=== PATIENT | female | born 1935 | race Caucasian/White ===

== ENCOUNTER → 2016-03-18 | Outpatient (CLI) | payer OTHER ==
--- NOTE | 2016-03-18 19:19 | US ---
Left Lower Extremity Duplex Venous Doppler Interventional Consult Relevant History: The patient is an 80-year-old female presenting with a long-term history of extens rena left lower extremity [id number] ulceration. Currently, the ulcer is the entire medial portio n of the calf, and deeply in the lateral distal portion of the ankle. [facility] have been severely painful. These ulcers have not healed for years. The patient is refe rred for evaluation of venous hypertension as a source of the ulceration. Conservatively, the patien t has been going through dressing changes with the [facility], which also applies supportive stocki ng and tight compression. She does not have any history of arterial insufficiency. She has 3+ pitti ng edema on the physical exam, and extensively swollen left leg below the knee, and the bandages were not particularly removed today because of the severe pain it would induce the patient. Technique: A limited upright duplex venous Doppler was performed of the superficial system, followed by a supine interrogation of the deep system. Discussion took place with the patient afterwards. Findings: The great saphenous vein measures 6 mm at the knee, 6 mm at the mid thigh, 9 mm at the nallely in, 12 mm at the SFJ. It demonstrates greater than 5 seconds reflux. The ALT measures 5 mm at the p roximal 5 cm segment, after which it exits the sheath and contributes to large externally visible rop ey varicose veins. The ALT refluxes 7 seconds. There is no deep system reflux in the common femoral area. There are incidental lymph nodes. Ugvbg-djb-[id number] interrogation again was not performed today because the dressings are not removed belo w the knee. Impressions 1. Moderate reflux in the great saphenous system at 5 seconds. 2. Significant reflux at the ALT at 7 seconds. 3. Large externally visible ropey varicose veins in the ALT distribution. Treatment Plan 1. Laser ablation of the great saphenous system. 2. Sclerotherapy of the proximal ALT after laser ablation of the great saphenous system. 3. 10 to 20 stab phlebectomy of the large ropey varicose veins. After the above treatment, continued application of compression stocking and wound change will need t o take place through Wound Care. I would give this patient at least a month or two before the ulcers show significant healing. At that point, the patient is to return for repeat ultrasound below the k nee. I anticipate some perforators that are [id number] that would contribute to additional ulcer ation or lack of complete healing. These will need to be found and treated at that time. The above are discussed in detail with the patient, who expressed understanding and agreement. Total [id number]-mg-[id number] consultation was half an hour. Crosscutting Measure: Patient's current list of medications including all known prescriptions, over- the-counters, herbals, and vitamin/mineral/dietary supplements are reviewed. Medications' name, dosa ge, frequency, and route of administration are confirmed. Patient is a nonsmoker.
== END ==
LOC: FIMAGING 07:51
PROVIDERS: ATTEND Radiology Diagnostic Radiology
DX: I87.2 Venous insufficiency (chronic) (peripheral) (principal); L97.229 Non-pressure chronic ulcer of left calf with unspecified severity

== ENCOUNTER 2016-05-07 08:02 | Day surgery (SDC) | payer OTHER ==
[2016-05-07] MEDS ORDERED: SODIUM TETRADECYL SULFATE 60 MG/2 ML VIAL IV ONE (08:22)
[2016-05-07] MEDS ORDERED: LIDO/EPI 1% **for epidural** 30 ML SDV ONE (08:22)
[2016-05-07 09:09] LABS: HEMATOCRIT 32.8 % (38.0-47.0); HEMOGLOBIN 9.8 g/dL (12.6-16.3)
[2016-05-07 09:21] LABS: ANION GAP 9 mEq/L (8-16); CARBON DIOXIDE 23 mEq/l (22-31); CHLORIDE 105 mEq/L (97-110); CREATININE 0.6 mg/dL (0.6-1.0); GLOMERULAR FILTRATION RATE > 60; GLUCOSE 93 mg/dL (70-100); POTASSIUM 4.4 mEq/L (3.5-5.2); SODIUM 137 mEq/L (134-144)
[2016-05-07 09:23] LABS: INR 1.08 (0.83-1.16); PROTIME(PATIENT) 13.9 SEC (12.0-15.0)
[2016-05-07 09:24] LABS: APTT 39.3 SEC (23.0-38.0)
[2016-05-07] MEDS ORDERED: FLUMAZENIL 0.5 MG/5 ML MDV IVP ONE (09:38)
[2016-05-07] MEDS ORDERED: NALOXONE HCL 0.4 MG/ML INJ ONE (09:38)
[2016-05-07] MEDS ORDERED: fentaNYL 100 MCG/2 ML INJ ONE ×2 (09:39→10:48)
[2016-05-07] MEDS ORDERED: CEFAZOLIN 2 GM/DEXTROSE/100 ML BAG IV ONE (09:39)
[2016-05-07] MEDS ORDERED: MIDAZOLAM 2 MG/2 ML VIAL ONE (09:39)
== END 2016-05-07 14:35 | disposition home or self-care (01) ==
LOC: FIMAGING 08:02
PROVIDERS: ATTEND Radiology Diagnostic Radiology
PROC: 065Q3ZZ Destruction of Left Saphenous Vein, Percutaneous Approach (ICD-10-PCS; principal; 2016-05-07 11:30)
PROC: 3E033TZ Introduction of Destructive Agent into Peripheral Vein, Percutaneous Approach (ICD-10-PCS; principal; 2016-05-07 11:30)
PROC: 06DY0ZZ Extraction of Lower Vein, Open Approach (ICD-10-PCS; principal; 2016-05-07 11:30)
DX: I83.022 Varicose veins of left lower extremity with ulcer of calf (principal); L03.116 Cellulitis of left lower limb
CPT/HCPCS: J0690; J2250; J2310; J3010

== ENCOUNTER 2016-10-19 15:30 | Inpatient (IN) | payer OTHER ==
--- NOTE | 2016-10-19 15:27 | EDPHY ---
H & P Constitutional: Initial Vital Signs Temperature (C) 37.5 C 10/19/16 15:30 Heart Rate 120 H 10/19/16 15:30 Respiratory Rate 20 10/19/16 15:30 Blood Pressure 156/57 H 10/19/16 15:30 O2 Sat (%) 94 10/19/16 15:30 O2 Delivery Mode Room Air Allergies/Adverse Reactions: Sulfa (Sulfonamide Antibiotics) Allergy (Unknown, Verified 11/27/12 21:07) Home Medications: Medication Instructions Recorded metFORMIN HCL [Glucophage 500 mg 1,000 mg PO BIDMEAL 11/28/12 (*)] Naproxen Sodium [Aleve 220 MG (*)] 220 mg PO BIDMEAL PRN 10/16/15 Aspirin 81 mg PO DAILY 02/13/16 Herbal Drugs 02/13/16 Insulin Glargine [Lantus 100 38 units SC HS 02/13/16 UNITS/ML (*)] traMADol 50 mg PO PRN PRN 02/13/16 Vitamin C 500 mg (*) 1,000 mg PO DAILY 05/02/16 Vitamin D3 10,000 units PO DAILY 05/02/16 Medical Decision Making - Diagnostics Imaging Results: Imaging Impressions Chest X-Ray 10/19/16 15:36 Impression: 1. No pneumonia. 2. Cardiomegaly without failure. Imaging: I viewed and interpreted images myself ED Course/Re-evaluation: CHIEF COMPLAINT: Malaise, concern for sepsis. HISTORY OF PRESENT ILLNESS: The patient is an 80 y/o female, with a history of diabetes, arriving via EMS complaining of malaise onset this morning after a routine blood draw. She has chronic diabetic ulcers to both lower legs that are followed by her PCP. Once returning home, she developed malaise, nausea, chills , and a reported fever of 102F. She denies any specific pain, cough, urinary symptoms, or other infectious symptoms. EMS notes she was tachycardic and pale en route. She denies other complaints. REVIEW OF SYSTEMS: A 10 point review of systems was performed and is negative with the exception of the elements mentioned in the history of present illness. PHYSICAL EXAM: HR, BP, O2 Sat, RR. Temp noted General Appearance: Alert, well hydrated, appropriate, and pale. Head: Atraumatic without scalp tenderness or obvious injury Eyes: Pupils equal, round, reactive to light and accommodation, EOMI, no trauma , no injection. Nose: Atraumatic, no rhinorrhea, clear. Throat: Mucus membranes moist. Neck: Supple, nontender, no lymphadenopathy. Respiratory: No retractions, no distress, no wheezes, and no accessory muscle use. Lungs are clear to auscultation bilaterally. Cardiovascular: Tachycardic regular rate and rhythm, no murmurs, rubs, or gallops. Good capillary refill all extremities. Gastrointestinal: Abdomen is soft, nontender, non-distended, no masses, no rebound, no guarding, no peritoneal signs. Musculoskeletal: Normal active ROM of all extremities. Chronic cellulitic changes to both lower legs with large weeping wound and surrounding erythema on left lower leg. Wounds are fetid. Neurological: Alert, appropriate, and interactive. Nonfocal neuro exam. Skin: Pale. No rashes, good turgor, no nodules on palpation. Past medical history: Diabetes type II, diabetic ulcers Past surgical history: Bilateral knee replacements Family history: noncontributory Social history: Single. Retired. Lives in [place]. PCP: Dr. Christensen DIAGNOSTICS/PROCEDURES/CRITICAL CARE TIME: Chest x-ray: No infiltrate, cardiomegaly. DIFFERENTIAL DIAGNOSIS: The differential diagnosis for the patient's fever included but was not limited to diabetic ulcers, pneumonia, urinary tract infection, viral syndrome, meningitis, and sepsis. MEDICAL DECISION MAKING: This is a chronically-ill appearing 80 y/o female with a history of diabetes and chronic leg ulcers who presents with a few-hour history of malaise and fever. She is pale and tachycardic on initial exam with fetid bandages on both lower legs. She is not on antibiotics for these ulcers and has bilateral knee replacements directly above her ulcerations. She meets initial sepsis screening criteria due to her vitals and likely source of infection. Plan for IV, labs including lactate and cultures, UA, and chest x-ray. Patient has elevated WBC and is anemic with a Hct of 23. Her Hct has been progressively decreasing since 2016 for unclear reasons. Her lactate is normal. She does not meet criteria for severe sepsis. She will be typed&crossed for 2 units PRBCs and given 4.5gm IV Zosyn for suspected pseudomonas leg infections. Reassessed and discussed plan with the patient. She agrees with plan for admission. Spoke with hospitalist service. Dr. Hall accepts admission. Consulted with Dr. Christensen, patient's PCP, to update him on patient's condition. He has worked up the patient's anemia and determined it is an anemia of chronic disease and treats her with occasional transfusions as needed. He also recommended keeping patient's bandages in place. - Data Points Laboratory Results: Laboratory Results 10/19/16 15:48 10/19/16 15:48 10/19/16 10/19/16 10/19/16 16:35 15:48 15:48 WBC RBC Hgb Hct MCV MCH MCHC RDW Plt Count MPV Neut % (Auto) Lymph % (Auto) [place] % (Auto) Eos % (Auto) Baso % (Auto) Nucleat RBC Rel Count Absolute Neuts (auto) Absolute Lymphs (auto) Absolute Monos (auto) Absolute Eos (auto) Absolute Basos (auto) Absolute Nucleated RBC Immature Gran % Immature Gran # Platelet Estimate Polychromasia Hypochromasia Microcytic Cells Schistocytes Smear Review By PT 14.0 SEC SEC (12.0-15.0) INR 1.09 (0.83-1.16) APTT 29.2 SEC SEC (23.0-38.0) VBG Lactic Acid Sodium 129 mEq/L L mEq/L (134-144) Potassium 4.6 mEq/L mEq/L (3.5-5.2) Chloride 98 mEq/L mEq/L (97-110) Carbon Dioxide 21 mEq/l L mEq/l (22-31) Anion Gap 10 mEq/L mEq/L (8-16) BUN 15 mg/dL mg/dL (7-23) Creatinine 0.9 mg/dL mg/dL (0.6-1.0) Estimated GFR > 60 Glucose 153 mg/dL H mg/dL (70-100) Calcium 8.4 mg/dL L mg/dL (8.5-10.4) Total Bilirubin 0.7 mg/dL mg/dL (0.1-1.4) Patient ABO/Rh Pending Antibody Screen Pending Crossmatch IS Only See Detail 10/19/16 10/19/16 15:48 15:48 WBC 18.86 10^3/uL H 10^3/uL (3.80-9.50) RBC 3.23 10^6/uL L 10^6/uL (4.18-5.33) Hgb 6.9 g/dL L g/dL (12.6-16.3) Hct 23.1 % L % (38.0-47.0) MCV 71.5 fL L fL (81.5-99.8) MCH 21.4 pg L pg (27.9-34.1) MCHC 29.9 g/dL L g/dL (32.4-36.7) RDW 19.1 % H % (11.5-15.2) Plt Count 339 10^3/uL 10^3/uL (150-400) MPV 8.8 fL fL (8.7-11.7) Neut % (Auto) 94.1 % H % (39.3-74.2) Lymph % (Auto) 2.4 % L % (15.0-45.0) [place] % (Auto) 2.8 % L % (4.5-13.0) Eos % (Auto) 0.0 % L % (0.6-7.6) Baso % (Auto) 0.1 % L % (0.3-1.7) Nucleat RBC Rel Count 0.0 % % (0.0-0.2) Absolute Neuts (auto) 17.73 10^3/uL H 10^3/uL (1.70-6.50) Absolute Lymphs (auto) 0.46 10^3/uL L 10^3/uL (1.00-3.00) Absolute Monos (auto) 0.53 10^3/uL 10^3/uL (0.30-0.80) Absolute Eos (auto) 0.00 10^3/uL L 10^3/uL (0.03-0.40) Absolute Basos (auto) 0.02 10^3/uL 10^3/uL (0.02-0.10) Absolute Nucleated RBC 0.00 10^3/uL 10^3/uL (0-0.01) Immature Gran % 0.6 % % (0.0-1.1) Immature Gran # 0.12 10^3/uL H 10^3/uL (0.00-0.10) Platelet Estimate ADEQUATE (ADEQ) Polychromasia 1+ H Hypochromasia 2+ H Microcytic Cells 2+ H Schistocytes 1+ H Smear Review By Pending PT INR APTT VBG Lactic Acid 1.5 mmol/L mmol/L (0.7-2.1) Sodium Potassium Chloride Carbon Dioxide Anion Gap BUN Creatinine Estimated GFR Glucose Calcium Total Bilirubin Patient ABO/Rh Antibody Screen Crossmatch IS Only Departure - Departure Disposition: [facility] Inpatient Acute Clinical Impression: Fever Qualifiers: Fever type: due to other condition Qualified Code(s): R50.81 - Fever presenting with conditions classified elsewhere Skin ulcer of lower leg Qualifiers: Laterality: unspecified laterality Non-pressure ulcer stage: unspecified non- pressure ulcer stage Qualified Code(s): L97.909 - Non-pressure chronic ulcer of unspecified part of unspecified lower leg with unspecified severity Leukocytosis Qualifiers: Leukocytosis type: other Qualified Code(s): D72.828 - Other elevated white blood cell count Condition: Fair Report Scribed for: Gerard Tamayo Report Scribed by: Gudelia Cobian Date of Report: 10/19/16 Time of Report: 15:42
[2016-10-19 16:06] LABS: % IMMATURE GRANULYOCYTES 0.6 % (0.0-1.1); ABSOLUTE IMMATURE GRANULOCYTES 0.12 10^3/uL (0.00-0.10); ADD DIFF? NO; ADD MORPH? YES; ADD SCAN? NO; ATYPICAL LYMPHOCYTE FLAG 0 (0-99); FRAGMENT RBC FLAG 20 (0-99); HEMATOCRIT 23.1 % (38.0-47.0); LEFT SHIFT FLG 0 (0-99); LIPEMIA HEMOLYSIS FLAG 70 (0-99); MEAN CELL HEMOGLOBIN 21.4 pg (27.9-34.1); MEAN CELL HEMOGLOBIN CONCENTR. 29.9 g/dL (32.4-36.7); MEAN CELL VOLUME 71.5 fL (81.5-99.8); MEAN PLATELET VOLUME 8.8 fL (8.7-11.7); PLATELET CLUMPS FLAG 0 (0-99); PLATELET COUNT 339 10^3/uL (150-400); RED BLOOD CELL COUNT 3.23 10^6/uL (4.18-5.33); RED CELL DISTRIBUTION WIDTH 19.1 % (11.5-15.2)
[2016-10-19 16:08] LABS: APTT 29.2 SEC (23.0-38.0); INR 1.09 (0.83-1.16)
[2016-10-19 16:09] LABS: HEMOGLOBIN 6.9 g/dL (12.6-16.3)
[2016-10-19 16:16] LABS: ANION GAP 10 mEq/L (8-16); BILIRUBIN,TOTAL 0.7 mg/dL (0.1-1.4); CALCIUM 8.4 mg/dL (8.5-10.4); CARBON DIOXIDE 21 mEq/l (22-31); CHLORIDE 98 mEq/L (97-110); CREATININE 0.9 mg/dL (0.6-1.0); GLOMERULAR FILTRATION RATE > 60; GLUCOSE 153 mg/dL (70-100); POTASSIUM 4.6 mEq/L (3.5-5.2); SODIUM 129 mEq/L (134-144)
[2016-10-19] MEDS ORDERED: ERTAPENEM 1 GM in NS 100 ML IV ONE (16:38)
[2016-10-19 16:50] LABS: MICROCYTES 2+
[2016-10-19 16:51] LABS: HYPOCHROMIA 2+; PLATELET ESTIMATE ADEQUATE (ADEQ); POLYCHROMASIA 1+; SCHISTOCYTES 1+
[2016-10-19] MEDS ORDERED: PIPERACILLIN/TAZO 4.5 GM/DEX 100 ML IV ONE (16:57)
[2016-10-19] MEDS ORDERED: traMADol 50 MG TAB PO PRN (17:27)
[2016-10-19] MEDS ORDERED: HYDROCODONE/APAP 5/325 TAB PO PRN (17:30)
[2016-10-19] MEDS ORDERED: ONDANSETRON DISINTEGRATING 4 MG TAB PO PRN (17:30)
[2016-10-19] MEDS ORDERED: NS 1,000 ML IV SCH (17:30)
[2016-10-19] MEDS ORDERED: ONDANSETRON 4 MG/2 ML VIAL IVP PRN (17:30)
[2016-10-19] MEDS ORDERED: ACETAMINOPHEN 325 MG TAB PO PRN (17:30)
--- NOTE | 2016-10-19 17:41 | CPEKG ---
Heart Rate: 109 RR Interval: 550 P-R Interval: 164 QRSD Interval: 74 QT Interval: 320 QTC Interval: 431 P Clawson: 52 QRS Clawson: 49 T Wave Clawson: 46 EKG Severity - OTHERWISE NORMAL ECG - EKG Impression: SINUS TACHYCARDIA Electronically Signed By: Kelvin Petit 22-Oct-2016 15:33:45
[2016-10-19 17:53] LABS: COLOR YELLOW; LEUKOCYTE ESTERASE,URINE TRACE (NEGATIVE); NITRITE,URINE NEGATIVE (NEGATIVE)
[2016-10-19 17:57] LABS: MUCUS TRACE /lpf (NONE-1+)
[2016-10-19] MEDS ORDERED: PIPERACILLIN/TAZO 3.375 GM/DEX 50 ML IV SCH (18:00)
--- NOTE | 2016-10-19 18:35 | GHP ---
[f rep st] HISTORY AND PHYSICAL DATE OF ADMISSION: 10/19/2016 CHIEF COMPLAINT: Fever and malaise. HISTORY OF PRESENT ILLNESS: This is an 80-year-old female with a history of chronic left lower extr emity ulceration and venous insufficiency. She has been struggling with this for over a year. She has been seeing Wound Care and had a wound VAC on that until just several days ago. In discussing t he case with Dr. Hay, it seems that she was late to her appointment and they were actually conside ring letting her go from the wound clinic for missed and late appointments. She states that at that time that she was aware of an anemia that needed to be worked up, that she was going to undergo col onoscopy and blood transfusion per Dr. Christensen. She, over the last several days, has been feeling weaker. She states that she does not drink a lot of water because it is difficult for her to go to the bathroom. She has had some vomiting but no bl ood. She has not been eating. She also then had a fever to 102 yesterday. She feels that she has more pain in her leg; although, she says that the erythema and drainage is about the same. No dysur ia. No diarrhea. The patient denies any melena. She does take 3 Aleve per day which she stopped a few days ago. She did have a colonoscopy 2 years ago, which she said there were no polyps. She has had 2 other colon oscopies prior, one of which had polyps, during the initial one. REVIEW OF SYSTEMS: A 10-point review of systems was obtained and, other than the History of Present Illness, was negative. PAST MEDICAL HISTORY: 1. Type 2 diabetes. 2. Venous insufficiency. 3. Chronic left lower extremity wound as above. 4. Previous colonization with Pseudomonas. 5. History of congenital heart murmur. SOCIAL HISTORY: No smoking or tobacco. She does live alone. She does have several close friends. 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 FAMILY HISTORY: Father with diabetes. Mother with Alzheimer's. PHYSICAL EXAMINATION: VITAL SIGNS: Afebrile. Blood pressure is 156/57. Heart rate is 120s, come down in the low one-teens. GENERAL: The patient is slightly ill-appearing in no apparent distress. HEENT: Nonicteric sclerae. Extraocular movements are intact. Slightly dry mucous membranes. NE CK: Supple. No thyromegaly. LUNGS: Good effort. Clear to auscultation bilaterally. CARDIOVASCU LAR: Regular rate and rhythm with a 3/6 systolic murmur heard best at the left lower sternal border . ABDOMEN: Positive bowel sounds. Soft, nontender, nondistended. No hepatosplenomegaly. EXTREMI TIES: Chronic venous stasis changes of both legs. The left lower extremity has a significant ulcer ation that is circumferential around her leg and basically encompasses her whole lower leg. There i s some malodor and purulence; although, the patient says this is chronic. NEUROLOGIC: Alert and or iented x3. Moving all 4 extremities equally. PSYCHIATRIC: Normal affect. LABORATORY DATA: White blood cell count 18, hemoglobin 6.9, MCV 71, which compared to last year, he r hemoglobin was 11, MCV was 80. Her reticulocyte count actually, on labs drawn this morning, was s lightly high at 3.39. Sodium was 129. Her last sodium shows a 137 in the system. Blood drawn by h er PCP does show an iron of 15, an iron saturation of 4, and a ferritin of 14. ASSESSMENT: This is an 80-year-old female, with left lower extremity chronic ulceration, venous ins ufficiency with probable cellulitis and newer iron-deficiency anemia. PLAN: 1. Left lower extremity cellulitis. The patient does have an elevated white blood cell count and f ever. I am not sure if the appearance is much different; although, I have asked Dr. Hay to come s ee the patient tomorrow and comment on this as she has been following the patient and saw the leg ju a few days ago. Since she has been colonized with Pseudomonas, we will treat her with Zosyn and then get Infectious Disease to see her in the morning. 2. Microcytic, iron-deficiency anemia. Hemoglobin has dropped fairly significantly in the last wee k. She is also volume depleted. I suspect that with hydration, her hemoglobin will drop even furth er. We will give her 2 units of packed red blood cells as ordered by the emergency department. We will also give IV iron. I talked and discussed the case with Gastroenterology who will do an upper EGD in the morning. Could have ulceration or gastritis due to her Aleve. She did have a normal col onoscopy 2 years ago and probably would not start with that. 3. Hyponatremia. This is probably related to volume depletion and low solute that she has been dri nking, trying to drink more water but not eating very much. We will give gentle hydration of normal saline and monitor this. We will also check urine electrolytes. 4. Type 2 diabetes. We will continue metformin. I am going to hold her Lantus because of being n. p.o. and not eating very much. 5. Code status. The patient is a DNR. /[id number]/MODL
[2016-10-19] MEDS: metFORMIN HCL 500 MG TAB PO SCH (18:37)
[2016-10-19] MEDS: PIPERACILLIN/TAZO 4.5 GM/DEX 100 ML IV SCH (18:37)
[2016-10-19] MEDS: SODIUM FERRIC GLUCONAT/SUCROSE 125 MG in NS 100 ML IV SCH (19:43)
[2016-10-19] MEDS: PANTOPRAZOLE SODIUM 40 MG in NS 100 ML IV SCH (21:05)
[2016-10-19] MEDS: OXYCODONE/APAP 5/325 TAB PO PRN (22:17)
[2016-10-20] MEDS: PIPERACILLIN/TAZO 4.5 GM/DEX 100 ML IV SCH ×2 (03:33→06:21)
[2016-10-20 04:53] LABS: % IMMATURE GRANULYOCYTES 0.5 % (0.0-1.1); ABSOLUTE IMMATURE GRANULOCYTES 0.07 10^3/uL (0.00-0.10); ADD DIFF? NO; ADD MORPH? NO; ADD SCAN? NO; ATYPICAL LYMPHOCYTE FLAG 0 (0-99); FRAGMENT RBC FLAG 20 (0-99); HEMATOCRIT 24.1 % (38.0-47.0); HEMOGLOBIN 7.5 g/dL (12.6-16.3); LEFT SHIFT FLG 0 (0-99); LIPEMIA HEMOLYSIS FLAG 80 (0-99); MEAN CELL HEMOGLOBIN 22.6 pg (27.9-34.1); MEAN CELL HEMOGLOBIN CONCENTR. 31.1 g/dL (32.4-36.7); MEAN CELL VOLUME 72.6 fL (81.5-99.8); MEAN PLATELET VOLUME 8.5 fL (8.7-11.7); PLATELET CLUMPS FLAG 20 (0-99); PLATELET COUNT 247 10^3/uL (150-400); RED BLOOD CELL COUNT 3.32 10^6/uL (4.18-5.33); RED CELL DISTRIBUTION WIDTH 19.3 % (11.5-15.2)
[2016-10-20 05:02] LABS: INR 1.22 (0.83-1.16); PROTIME(PATIENT) 15.4 SEC (12.0-15.0)
[2016-10-20 05:03] LABS: APTT 42.3 SEC (23.0-38.0)
[2016-10-20 05:16] LABS: ALANINE AMINOTRANSFERASE 24 IU/L (9-52); ALBUMIN 2.4 g/dL (3.5-5.0); ALKALINE PHOSPHATASE 42 IU/L (38-126); ANION GAP 10 mEq/L (8-16); ASPARTATE AMINOTRANSFERASE 21 IU/L (14-46); BILIRUBIN,TOTAL 2.2 mg/dL (0.1-1.4); CALCIUM 7.8 mg/dL (8.5-10.4); CARBON DIOXIDE 22 mEq/l (22-31); CHLORIDE 100 mEq/L (97-110); CREATININE 1.3 mg/dL (0.6-1.0); GLOMERULAR FILTRATION RATE 39; GLUCOSE 98 mg/dL (70-100); POTASSIUM 4.4 mEq/L (3.5-5.2); SODIUM 132 mEq/L (134-144); TOTAL PROTEIN 4.7 g/dL (6.3-8.2)
[2016-10-20 05:23] LABS: BILIRUBIN-CONJUGATED 0.2 mg/dL (0.0-0.5)
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
[2016-10-20] MEDS ORDERED: PROPOFOL 200 MG/20 ML VIAL ONE (09:21)
[2016-10-20] MEDS ORDERED: ONDANSETRON 4 MG/2 ML VIAL ONE (09:22)
--- NOTE | 2016-10-20 09:46 | SOAPPROG ---
SOAP Progress Note Assessment/Plan: Assessment: Plan: 10/20/16 09:44 GI note See dictated consult and EGD report. S/p EGD with no site of bleeding noted. Biopsies taken to r/o celiac sprue. Meds : propofol. EBL: Minimal Recommend to proceed with colonoscopy tomorrow. Objective: Vital Signs Temp Pulse Resp BP Pulse Ox 34.7 C L 76 16 110/51 L 97 10/20/16 08:50 10/20/16 09:19 10/20/16 09:19 10/20/16 09:19 10/20/16 09:19 Laboratory Results 10/20/16 04:45 10/20/16 04:45 10/19/16 10/20/16 10/21/16 05:59 05:59 05:59 Intake Total 1176 Balance 1176 PT 15.4 SEC (12.0-15.0) H 10/20/16 04:45 INR 1.22 (0.83-1.16) H 10/20/16 04:45 ICD10 Worksheet Patient Problems: Problems Problem Status Onset Venous insufficiency (chronic) (peripheral) Acute Skin ulcer of lower leg Acute Fever Acute Leukocytosis Acute
[2016-10-20] MEDS ORDERED: PROMETHAZINE HCL 25 MG/ML INJ IVP PRN (09:48)
[2016-10-20] MEDS ORDERED: LR 500 ML IV PRN (09:48)
[2016-10-20] MEDS ORDERED: fentaNYL 100 MCG/2 ML INJ IVP PRN (09:48)
[2016-10-20] MEDS ORDERED: NALOXONE HCL 0.4 MG/ML INJ IVP PRN (09:48)
--- NOTE | 2016-10-20 09:49 | POSTANESTH ---
Post Anesthetic Evaluation Cardiovascular Status: Normal, Stable Respiratory Status: Normal, Stable Level of Consciousness/Mental Status: Can Participate in Eval Pain Control: Adequate, Prn Tx Ordered Nausea/Vomiting Control: Adequate, Prn Tx Ordered Complications Possibly Related to Anesthesia: None Noted
--- NOTE | 2016-10-20 10:07 | GCON ---
[f rep st] CONSULTATION DATE OF CONSULTATION: 10/20/2016 CONSULTING PHYSICIAN: Freya Hall MD. REASON FOR CONSULTATION: Iron deficiency anemia. CHIEF COMPLAINT: Weakness. HISTORY OF PRESENT ILLNESS: The patient is an 80-year-old female with a history of diabetes mellitus, chronic left lower extremity ulceration, who presents to [facility] with complaints of fatigue/weakness. The patient has significant fatigue, weakness for multiple months, but states over the last 2 weeks her symptoms are much worse. She has had significant problems performing her activity of daily living. She did have one episode of vomiting prior to admission. She did spike a fever prior to admission. She denies any blood in the stool or change in her bowel habits. She does take nonsteroidal anti-inflammatories on a daily basis. She did have a prior colonoscopy in 2011. I am being asked by Dr. Hall to see the patient in consultation regarding her significant anemia. PAST MEDICAL HISTORY: 1. Type 2 diabetes mellitus. 2. Deep venous insufficiency. 3. Chronic left lower extremity wound. 4. Pseudomonas. PAST SURGICAL HISTORY: 1. Bilateral knee surgery. 2. Rotator cuff repair. 3. Bilateral lens replacements. ALLERGIES: Sulfa and silver. MEDICATIONS AT HOME: Metformin, naproxen, aspirin, insulin, tramadol, vitamin C , vitamin D3. FAMILY HISTORY: Father: Diabetes. Mother: Alzheimer's. SOCIAL: No significant alcohol or tobacco use. REVIEW OF SYSTEMS: A 14 point comprehensive review of systems asked. Pertinent positives and negatives per hpi. PHYSICAL EXAM: VITAL SIGNS: Temperature 34.7, blood pressure 110/51, heart rate 73, respirations 16. GENERAL: Awake, alert, and oriented x3. No distress. HEENT: Anicteric sclerae. Moist mucosa. NECK: No JVD. CARDIOVASCULAR: Regular rate and rhythm. Positive S1, S2. Positive systolic ejection murmur. LUNGS: Clear to auscultation bilaterally. No wheezes, rales or rhonchi. ABDOMEN: Soft, nontender, nondistended. Positive bowel sounds. No guarding or rebound. EXTREMITIES: Chronic venous stasis of both legs. Left lower extremity is ulcerated. NEUROLOGIC: 2 through 12 grossly intact. PSYCH: Normal affect. BLOOD WORK: WBC is 15.06, hemoglobin 7.5, hematocrit 24.1, platelets 247. INR 1.22. Sodium 132, potassium 4.4, carbon dioxide 22, BUN 19, creatinine 1.3. Iron 15, iron sat 4, TIBC 343. ASSESSMENT AND PLAN: 1. Anemia-iron deficient. Did have a prior colonoscopy 5 years ago. On significant nonsteroidal anti-inflammatories. At this time, I recommend to proceed with upper endoscopy to delineate the cause of her symptoms. The risks, benefits, and alternatives of the procedure were discussed in great detail with the patient. The risk of infection, bleeding, perforation, and sedation were discussed. If EGD is negative, would recommend to proceed with colonoscopy. 2. Diabetes mellitus. 3. History of chronic left lower extremity wound. Thank you very much for this consultation. /[id number]/MODL MTDD
--- NOTE | 2016-10-20 10:22 | GPN ---
[f rep st] PROCEDURE NOTE DATE OF PROCEDURE: 10/20/2016 PROCEDURE: Esophagogastroduodenoscopy with biopsy. INDICATION: The patient is an 80-year-old female who presents for evaluation of iron-deficiency anemia. CONSENT: Risks, benefits, and alternatives of the procedure were discussed in great detail with the patient. Risk of infection, bleeding, perforation, and sedation were discussed. All questions answered and informed consent was obtained. MEDICATIONS: Propofol. Please see Anesthesiology record for details. ESTIMATED BLOOD LOSS: Insignificant. ESOPHAGOGASTRODUODENOSCOPY EXAMINATION: The Olympus upper endoscope was inserted in the mouth and advanced to the esophagus. The proximal, mid, distal esophagus were normal in appearance. The stomach was entered and closely examined, including retroflexed views of the angularis, cardia, and fundus. No ulcer or site of bleeding was noted, despite careful examination. The duodenal bulb and second portion of duodenum were normal in appearance. Biopsies were taken for celiac sprue due to her significant iron-deficiency anemia. IMPRESSION: 1. No site of bleeding noted. 2. Biopsies taken to rule out celiac sprue. RECOMMENDATIONS: 1. Follow up on biopsy results. 2. Proceed with colonoscopic evaluation tomorrow. /[id number]/MODL MTDD
[2016-10-20] MEDS: metFORMIN HCL 500 MG TAB PO SCH ×3 (10:25→18:03)
--- NOTE | 2016-10-20 10:45 | SOAPPROG ---
SOAP Progress Note Assessment/Plan: Assessment: 80 year old woman well known to me Admitted for fatigue, anemia and bacteremia Leg is likely source of bacteremia as wound is nearly circumferential She needs ultrasound of left lower leg to rule out venous insufficiency. Although difficult as an inpatient, will see if this can happen tomorrow Appreciate wound care RNs helping with dressings. Will ultimately transition back to apria vac. Keep dressing simple for now but need to control moisture Upper GI without source of bleeding Colonoscopy tomorrow Spent 15 min with larissa S: Feeling better than on admission O: Dressing not saturated Plan: 10/20/16 10:40 Objective: Vital Signs Temp Pulse Resp BP Pulse Ox 37 C 72 15 90/57 L 96 10/20/16 10:04 10/20/16 10:04 10/20/16 10:15 10/20/16 10:17 10/20/16 10:15 Laboratory Results 10/20/16 04:45 10/20/16 04:45 10/19/16 10/20/16 10/21/16 05:59 05:59 05:59 Intake Total 1276 Balance 1276 PT 15.4 SEC (12.0-15.0) H 10/20/16 04:45 INR 1.22 (0.83-1.16) H 10/20/16 04:45 Physical Exam - Physical Exam General Appearance: WD/WN, alert, no apparent distress EENT: PERRL/EOMI, normal ENT inspection, No scleral icterus (R), No scleral icterus (L), No hearing deficit Neck: supple Respiratory: No accessory muscle use Cardiac/Chest: regular rate, rhythm, edema ICD10 Worksheet Patient Problems: Problems Problem Status Onset Fever Acute Leukocytosis Acute Skin ulcer of lower leg Acute Venous insufficiency (chronic) (peripheral) Acute
[2016-10-20] MEDS: PANTOPRAZOLE SODIUM 40 MG in NS 100 ML IV SCH ×2 (10:49→20:03)
[2016-10-20] MEDS: OXYCODONE/APAP 5/325 TAB PO PRN (10:49)
[2016-10-20] MEDS ORDERED: HYDROmorphONE/DILAUDID 1 MG/ML SYR IVP PRN (10:51)
[2016-10-20] MEDS: cefTRIAXone 2 GM in D5W 50 ML IV SCH (12:08)
--- NOTE | 2016-10-20 12:42 | HOSPPROG ---
Hospitalist Progress Note Assessment/Plan: 80 yo F with h/o DM2 and chronic venous insufficiency and chronic LE ulceration pw LLE cellulitis, strep bacteremia in setting of her chronic wounds as well as worsening iron deficiency anemia # LLLE cellulitis: in setting of chronic venous stasis and chronic LE edema. Appreciate ID and gen surgery input, plan is for treatment with CTX for now pending final culture data, wound care and monitoring. Venous study pending # strep bacteremia: likely related to above, final culture data is pending, CTX for now, appreciate ID input # acute on chronic anemia: has had mild anemia for the last year but more significant decline in the last month. Underwent EGD this am without e/o bleeding source and plan for colonoscopy in am. Likely component of anemia of chronic disease in setting of chronic wounds # chronic venous insufficiency: with associated chronic edema and non healing wounds as above, venous study pending # dm2: ssi, metformin for now # hyponatremia: improved overnight, likely hypovolemic hyponatremia # DNR # IP status, will need > 48 hours stay for eval/mgmt of above Patient new to my care. Old records reviewed and summarized as above. Care plan reviewed with weed burner. Subjective: no significant overnight events, patient currently having significant pain in her leg as dressing change attempted Objective: Vital Signs Temp Pulse Resp BP Pulse Ox 37 C 72 15 90/57 L 96 10/20/16 10:04 10/20/16 10:04 10/20/16 10:15 10/20/16 10:17 10/20/16 10:15 Laboratory Results 10/20/16 04:45 10/20/16 04:45 10/19/16 10/20/16 10/21/16 05:59 05:59 05:59 Intake Total 1276 Balance 1276 PT 15.4 SEC (12.0-15.0) H 10/20/16 04:45 INR 1.22 (0.83-1.16) H 10/20/16 04:45 elderly F nad anicteric op clear rrr no mrg cta b soft nt nd lle w/circumferential erythema, open wounds partially covered with gauze ( unable to remove bandage currently due to pain) warm dry well perfused other than above oriented appropriate ICD10 Worksheet Patient Problems: Problems Problem Status Onset Fever Acute Leukocytosis Acute Skin ulcer of lower leg Acute Venous insufficiency (chronic) (peripheral) Acute
[2016-10-20] MEDS: SODIUM FERRIC GLUCONAT/SUCROSE 125 MG in NS 100 ML IV SCH (13:31)
--- NOTE | 2016-10-20 14:02 | GCON ---
[f rep st] CONSULTATION DATE OF CONSULTATION: 10/20/2016 REASON FOR CONSULTATION: Bacteremia. HISTORY OF PRESENT ILLNESS: An 80-year-old woman with a past medical history of diabetes and lower extremity venous insufficiency with longstanding chronic wound that has been difficult to heal of the left lower extremity. Approximately 1-1/2 months ago, a Wound VAC had been utilized for the left lower extremity wound with improvement in healing per patient report. In addition, patient has been gradually noted to be progressively anemic. Patient reports starting on Friday that it became so severe that she was unable to ambulate to the bathroom. She denies any changes in bowel habits, no melena, no nausea or vomiting, no clear weight loss. The patient does describe anorexia. On presentation in the emergency room, patient was found to be febrile to 38.9 with a leukocytosis of 18,000. In addition, she had tachycardia to 120. Patient had some fluid resuscitation and blood cultures were obtained. The patient was empirically started on Zosyn. The patient denies any new symptoms related to her left lower extremity and reports that her pain is at baseline. She does take regular NSAIDS. She has had an EGD since admission, which reportedly is negative. REVIEW OF SYSTEMS: A complete 10-point Review of Systems was performed and is negative except as mentioned in HPI. PAST MEDICAL/SURGICAL HISTORY: 1. Longstanding type 2 diabetes. 2. Venous insufficiency with chronic venous ulceration of the left lower extremity. Prior wound cultures demonstrate pseudomonas. 3. Known congenital heart murmur. 4. Sclerotherapy of her lower extremity veins. 5. Bilateral knee replacements, 5 and 8-years ago. SOCIAL HISTORY: No tobacco ever, she lives alone. 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 FAMILY HISTORY: Positive for diabetes and Alzheimer's. ALLERGIES: Sulfa. MEDICATIONS: Include: 1. Tylenol. 2. Iron 125 IV daily. 3. Dilaudid. 4. Metformin 1000 mg twice daily. 5. Zofran. 6. Percocet. 7. Protonix 40 mg IV daily. 8. GoLYTELY for colon prep tomorrow. 9. Ultram. 10. She also got 1-dose of ertapenem in the emergency room on 10/19 and also received 1-dose of Zosyn 4.5 g and subsequently started on Zosyn 4.5 g IV q.6 hours. PHYSICAL EXAM: VITAL SIGNS: Blood pressure 90/57, heart rate 72, T-max 38.9, temperature current 37.5, O2 saturation 97% on room air. Respiratory rate 16. GENERAL: This is an obese nontoxic-appearing woman who appears younger than stated age, lying in bed. HEENT: Pupils are reactive bilaterally. No conjunctival hemorrhages. She had conjunctival pallor. Oropharynx: She had significant gingival pallor, moist mucous membranes. Good dentition. NECK: Supple. No lymphadenopathy. CARDIOVASCULAR: Regular rate with a 2/6 systolic murmur. CHEST: Clear to auscultation bilaterally. ABDOMEN: Obese, soft, nontender. : No Bearden. EXTREMITIES: Patient had a circumferential denuded skin on the left lower extremity without surrounding erythema or purulence. No clear evidence of cellulitis by my exam. She has 2+ bounding pulses on the lower extremities. NEUROLOGIC: She had a flat affect, answered all questions appropriately, was moving all 4-extremities equally. LABORATORY: White count initially 18, today 15,000 with 88% neutrophils, hematocrit 24 with an MCV of 72, platelets of 247. Creatinine is 1.83 today, AST 21, ALT 24, alkaline phosphatase 42. Blood cultures from 10/19/2016 1 of 2 grew group A strep. IMAGING: Chest x-ray showed no focal infiltrate, an enlarged cardiomediastinal silhouette. ASSESSMENT AND PLAN: This is an 80-year-old woman with type 2 diabetes, and longstanding venous insufficiency with a significant amount of skin breakdown of the left lower extremity related to venous insufficiency. Patient admitted to the hospital with fever and progressive malaise and is found to be febrile in the emergency room with an elevated leukocytosis and blood cultures rapidly became positive with group A strep. Assessment 1) GAS bacteremia, suspect portal chronic LLE wound 2) Leukocytosis secondary to bacteremia 3) Chronic venous stasis with wound LLE that does not appear infected 4) Anemia, microcytic Recommendations 1) Discontinue Zosyn 2) Start ceftriaxone 2gm IV daily, liver metabolized, no renal dosing 3) Duration of therapy: 10-14 days from cleared blood cultures 4) placement of PICC line after clearance of blood cultures and administration of IV antibiotics at home versus Infusion Center. 5) Repeat blood cultures tomorrow to document clearance. If persistent bacteremia would consider ECHO, but currently, other than known murmur no suggestion of endocarditis. Thank you for this consultation. Infectious Disease service will continue to follow patient on a daily basis. /[id number]/MODL MTDD
--- NOTE | 2016-10-20 14:29 | WOCRNPDOC ---
WOCRN Advanced Assessment Note - Skin Integrity Problem, Advanced Assess Left Calf Dressing Type: Adaptic, Kerlix Dressing Description: Not Intact, Saturated Exudate Amount: Moderate Exudate Color: Yellow Exudate Characteristic(s): Clear, Serous Integumentary Issue Intervention: Dressing Changed (see Skin Integrity Problem Comment below), Barrier Cream Applied (to intact areas, for additional protection from wound exudate) [place]uzhat Wound Tissue: Scaly, Hemosiderin Staining, Xerotic [place]uzhat Wound Swelling: Mild Wound Bed Color: Red Wound Bed Constitution: Granulation Tissue Wound Edges: Attached, Well Defined Site Odor: Slight, Musky Site Measurement - Head-to-Toe Length X Width X Depth (cm): 23 x 33 x 0.3 Skin Integrity Problem Comment: Saw patient at request of Dr. Hay. Patient c/ o exquisite pain during first attempt to remove dressing; required premedication approximately 1.5 hours prior, and dressing pre-soaking with sterile NS for dressing removal. Coordinated visit and care with Dr. Holloway. After premedication with PO, patient reported and demonstrated improved tolerance of care. After cleansing with sterile NS and drain sponges, applied Cavilon skin prep to periwound and Dimethicone moisture barrier cream to intact skin. In discussion with patient, developed plan for an atraumatic dressing for use until plan of care adjusted by Dr. Hay following probable venous US on Friday. Placed adaptic touch to cover circumferential wound, which extends from mid-LE to ankle. Placed Transfer foam over adaptic touch, then ABDs to recieve drainage, secured with kerlix. CAMERON Rizzo present for care. Please re-consult Wound Care, if further involvement requested by Dr. Hay.
[2016-10-20] MEDS ORDERED: GOLYTELY 4000 ML BTL PO ONE (18:48)
[2016-10-21] MEDS: OXYCODONE/APAP 5/325 TAB PO PRN ×2 (01:50→18:01)
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
[2016-10-21] MEDS ORDERED: NALOXONE HCL 0.4 MG/ML INJ IVP PRN ×2 (07:57→07:58)
[2016-10-21] MEDS ORDERED: fentaNYL 100 MCG/2 ML INJ IVP PRN (07:57)
[2016-10-21] MEDS ORDERED: ONDANSETRON 4 MG/2 ML VIAL IVP PRN (07:57)
[2016-10-21] MEDS ORDERED: PROPOFOL/EMULSION 500 MG/50 ML BOTTLE IV ONE (07:57)
[2016-10-21] MEDS ORDERED: INDOMETHACIN 50 MG SUPP PR PRN (08:26)
[2016-10-21] MEDS ORDERED: NS 500 ML IV SCH (08:30)
--- NOTE | 2016-10-21 09:10 | SOAPPROG ---
SOAP Progress Note Assessment/Plan: Assessment: Plan: 10/20/16 09:44 GI note See dictated consult and EGD report. S/p EGD with no site of bleeding noted. Biopsies taken to r/o celiac sprue. Meds : propofol. EBL: Minimal Recommend to proceed with colonoscopy tomorrow. 10/21/16 08:58 GI note S/p colonoscopy. See dictated note for details. EBL: Minimal Meds: propofol. Specimens: cecal, sigmoid, and rectal polyps removed No cause of anemia seen. Recommend capsule endoscopy as outpatient. Ok to restart diet. GI will sign off. Thank you for the consultation! 10/21/16 09:10 Objective: Vital Signs Temp Pulse Resp BP Pulse Ox 36.9 C 83 18 104/54 L 95 10/21/16 08:44 10/21/16 07:46 10/21/16 08:46 10/21/16 08:46 10/21/16 08:46 Laboratory Results 10/20/16 04:45 10/20/16 04:45 10/20/16 10/21/16 10/22/16 05:59 05:59 05:59 Intake Total 3507 Balance 3507 PT 15.4 SEC (12.0-15.0) H 10/20/16 04:45 INR 1.22 (0.83-1.16) H 10/20/16 04:45 ICD10 Worksheet Patient Problems: Problems Problem Status Onset Venous insufficiency (chronic) (peripheral) Acute Skin ulcer of lower leg Acute Fever Acute Leukocytosis Acute
--- NOTE | 2016-10-21 09:23 | POSTANESTH ---
Post Anesthetic Evaluation Cardiovascular Status: Normal, Stable Respiratory Status: Normal, Stable, Requires Airway Assist Pain Control: Adequate, Prn Tx Ordered Nausea/Vomiting Control: Adequate, Prn Tx Ordered Complications Possibly Related to Anesthesia: None Noted
--- NOTE | 2016-10-21 09:30 | GPN ---
[f rep st] PROCEDURE NOTE DATE OF PROCEDURE: 10/21/2016 PROCEDURE: Colonoscopy with snare polypectomy, biopsy. INDICATION: The patient is an 80-year-old female who presents for further evaluation of iron-deficiency anemia. CONSENT: Risks, benefits, and alternatives of the procedure were discussed in great detail with the patient. Risk of infection, bleeding, perforation, and sedation were discussed. All questions answered. Informed consent was obtained. MEDICATIONS: Propofol. Please see Anesthesiology record for details. ESTIMATED BLOOD LOSS: Insignificant. COLONOSCOPIC EVALUATION: A rectal exam was done and no palpable mass was felt. The scope was introduced into the rectum and advanced to the cecum, where the ileocecal valve and appendiceal orifice were seen. The quality of prep was good. Fleeting images of the terminal ileum was seen, but appeared normal. In the cecum and sigmoid colon, 2 polyps were measured, approximately 4-5 mm, seen and removed by snare polypectomy. In the rectum, a 3 mm polyp was seen and removed by excisional biopsy. IMPRESSION: 1. Colonic polyps x3. 2. Scattered diverticulosis. RECOMMENDATIONS: 1. Follow up on biopsy results. 2. Recommend video capsule endoscopy as an outpatient. 3. GI will sign off. Thank you for the consultation! /[id number]/MODL MTDD
[2016-10-21] MEDS: cefTRIAXone 2 GM in D5W 50 ML IV SCH (09:42)
[2016-10-21 10:18] LABS: % IMMATURE GRANULYOCYTES 0.4 % (0.0-1.1); ABSOLUTE IMMATURE GRANULOCYTES 0.04 10^3/uL (0.00-0.10); ADD DIFF? NO; ADD MORPH? NO; ADD SCAN? NO; ATYPICAL LYMPHOCYTE FLAG 0 (0-99); FRAGMENT RBC FLAG 20 (0-99); HEMATOCRIT 27.5 % (38.0-47.0); HEMOGLOBIN 8.5 g/dL (12.6-16.3); LEFT SHIFT FLG 0 (0-99); LIPEMIA HEMOLYSIS FLAG 80 (0-99); MEAN CELL HEMOGLOBIN 22.8 pg (27.9-34.1); MEAN CELL HEMOGLOBIN CONCENTR. 30.9 g/dL (32.4-36.7); MEAN CELL VOLUME 73.7 fL (81.5-99.8); MEAN PLATELET VOLUME 8.5 fL (8.7-11.7); PLATELET CLUMPS FLAG 0 (0-99); PLATELET COUNT 295 10^3/uL (150-400); RED BLOOD CELL COUNT 3.73 10^6/uL (4.18-5.33); RED CELL DISTRIBUTION WIDTH 19.9 % (11.5-15.2)
[2016-10-21] MEDS: SODIUM FERRIC GLUCONAT/SUCROSE 125 MG in NS 100 ML IV ONE ×2 (10:37→10:43)
[2016-10-21] MEDS: PANTOPRAZOLE SODIUM 40 MG in NS 100 ML IV SCH ×2 (10:37→21:03)
[2016-10-21] MEDS: SODIUM FERRIC GLUCONAT/SUCROSE 125 MG in NS 100 ML IV SCH (10:40)
[2016-10-21] MEDS ORDERED: HYDROmorphONE/DILAUDID 1 MG/ML SYR IVP ONE (10:49)
[2016-10-21] MEDS ORDERED: LORazepam 2 MG/ML INJ IVP ONE (10:49)
[2016-10-21 10:50] LABS: ANION GAP 12 mEq/L (8-16); CALCIUM 8.1 mg/dL (8.5-10.4); CARBON DIOXIDE 19 mEq/l (22-31); CHLORIDE 105 mEq/L (97-110); CREATININE 1.2 mg/dL (0.6-1.0); GLOMERULAR FILTRATION RATE 43; GLUCOSE 110 mg/dL (70-100); POTASSIUM 3.8 mEq/L (3.5-5.2); SODIUM 136 mEq/L (134-144)
[2016-10-21] MEDS: metFORMIN HCL 500 MG TAB PO SCH (11:06)
--- NOTE | 2016-10-21 12:29 | HOSPPROG ---
Hospitalist Progress Note Assessment/Plan: 80 yo F with h/o DM2 and chronic venous insufficiency and chronic LE ulceration pw LLE cellulitis, strep bacteremia in setting of her chronic wounds as well as worsening iron deficiency anemia # LLLE cellulitis: in setting of chronic venous stasis and chronic LE edema. Appreciate ID and gen surgery input, plan is for treatment with CTX for now pending final culture data, wound care and monitoring. Venous study pending today. Has had issues with non compliance as an op complicating her care. # strep pyogenes bacteremia: likely related to above, final culture data is pending, CTX for now, appreciate ID input # acute on chronic anemia: has had mild anemia for the last year but more significant decline in the last month. Underwent EGD and colonoscopy without etiology for bleeding noted. Plan is for capsule endoscopy as an OP. # chronic venous insufficiency: with associated chronic edema and non healing wounds as above, venous study pending # dm2: ssi, metformin for now # hyponatremia: improved, likely hypovolemic hyponatremia # DNR # IP status, will need > 48 hours stay for eval/mgmt of above . Care plan reviewed with furnace helper. Subjective: no significant overnight events, patient is very concerned about having pain when she undergoes US of her legs Objective: Vital Signs Temp Pulse Resp BP Pulse Ox 36.6 C 76 18 97/40 L 95 10/21/16 10:22 10/21/16 10:22 10/21/16 10:22 10/21/16 10:22 10/21/16 10:22 Laboratory Results 10/21/16 10:10 10/21/16 10:10 10/20/16 10/21/16 10/22/16 05:59 05:59 05:59 Intake Total 3507 600 Balance 3507 600 PT 15.4 SEC (12.0-15.0) H 10/20/16 04:45 INR 1.22 (0.83-1.16) H 10/20/16 04:45 elderly F nad anicteric op clear rrr no mrg cta b soft nt nd lle w/circumferential erythema, open wounds partially covered with gauze ( unable to remove bandage currently due to pain) warm dry well perfused other than above oriented appropriate ICD10 Worksheet Patient Problems: Problems Problem Status Onset Fever Acute Leukocytosis Acute Skin ulcer of lower leg Acute Venous insufficiency (chronic) (peripheral) Acute
[2016-10-21] MEDS ORDERED: D50W 25 GM/50 ML SYR IVP PRN (12:31)
--- NOTE | 2016-10-21 12:34 | PCMIDPN ---
Assessment/Plan: Assessment: Group a strep bacteremia likely secondary to long-standing ongoing open ulceration of the left lower extremity. Repeat blood cultures are no growth to date. Patient is improved on ceftriaxone 2 g IV Q 24 hours. Chronic venous insufficiency-discussed with Dr. Bauer about the possibility that this is cardiogenic. We will order a 2D echocardiogram. Plan: 1. 2D echocardiogram. 2. Continue IV ceftriaxone 2 g IV Q 24 hours. Anticipated duration is 14 days from blood culture clearance. 3. Agree with Dr. spangler recommendations on vascular insufficiency of the lower extremities. Subjective: Patient is resting comfortably in the procedure room. She is getting evaluated for lower extremity venous reflux. No fevers or chills. She is tolerating ceftriaxone without issue. Objective: Ceftriaxone #2 Vital Signs Temp Pulse Resp BP Pulse Ox 36.6 C 76 18 97/40 L 95 10/21/16 10:22 10/21/16 10:22 10/21/16 10:22 10/21/16 10:22 10/21/16 10:22 Laboratory Results 10/21/16 10:10 10/21/16 10:10 10/20/16 10/21/16 10/22/16 05:59 05:59 05:59 Intake Total 3507 600 Balance 3507 600 - Physical Exam General Appearance: WD/WN, alert, no apparent distress, non-toxic Respiratory: lungs clear, normal breath sounds, No respiratory distress Cardiac/Chest: regular rate, rhythm, systolic murmur, No tachycardia Extremities: swelling, No non-tender, No normal inspection, No erythema Skin: normal color, warm/dry, other (Chronic ulcerations circumferential left lower extremity) Neuro/Psych: alert, normal mood/affect, oriented x 3 ICD10 Worksheet Patient Problems: Problems Problem Status Onset Fever Acute Leukocytosis Acute Skin ulcer of lower leg Acute Venous insufficiency (chronic) (peripheral) Acute
[2016-10-21] MEDS ORDERED: D10W 250 ML PRN HYPOGLYCEMIA IV (13:00)
[2016-10-21] MEDS: INSULIN LISPRO 100 UNIT/ML SC SCH (18:02)
--- NOTE | 2016-10-21 18:35 | SOAPPROG ---
SOAP Progress Note Assessment/Plan: Assessment: 80yo F well known to our service from [facility]. admitted with anemia bacteremia. Colonoscopy this morning without obvious source of blood loss Anemia of chronic disease most likely Hopeful to get venous US with Dr. Bauer tomorrow Appreciate hospitalists, GI and scrap cutter Will continue to follow S: feeling well after her colonoscopy today. nervous about ultrasound today O: sitting upright in chair no increased wob pallor dressings in place Objective: Vital Signs Temp Pulse Resp BP Pulse Ox 36 C 78 20 101/51 L 96 10/21/16 14:59 10/21/16 14:59 10/21/16 14:59 10/21/16 14:59 10/21/16 14:59 Laboratory Results 10/21/16 10:10 10/21/16 10:10 10/20/16 10/21/16 10/22/16 05:59 05:59 05:59 Intake Total 3507 1360 Balance 3507 1360 PT 15.4 SEC (12.0-15.0) H 10/20/16 04:45 INR 1.22 (0.83-1.16) H 10/20/16 04:45 ICD10 Worksheet Patient Problems: Problems Problem Status Onset Fever Acute Leukocytosis Acute Skin ulcer of lower leg Acute Venous insufficiency (chronic) (peripheral) Acute
--- NOTE | 2016-10-22 07:25 | SOAPPROG ---
MARCELO Progress Note Assessment/Plan: Assessment: 80 year old woman well known to me Admitted for fatigue, anemia and bacteremia Leg is likely source of bacteremia as wound is nearly circumferential Appreciate getting ultrasound for reflux inpatient 1) Left upper GSV is ablated and no reflux below the knee. One small doctor of nursing practice but not thought to contribute 2) R GSV reflux which can be treated electively. No ulcers or wounds so non urgent 3) Concern for pulsatile underlying flow in the deep system without AV fistula or reflux. Dr. Bauer asked if valvular heart disease could be a consideration. Will discuss with Becka transitioning back to wound vac versus finding another wrap. Becka and I decided on a vac-cation. 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 20 minutes face to face S: Glad to know that the physicians are communicating with each other Plan: 10/20/16 10:40 10/22/16 07:21 10/22/16 07:25 10/22/16 21:38 Objective: Vital Signs Temp Pulse Resp BP Pulse Ox 36.5 C 85 18 145/71 H 92 10/22/16 03:20 10/22/16 03:20 10/22/16 03:20 10/22/16 03:20 10/22/16 03:20 Laboratory Results 10/21/16 10:10 10/21/16 10:10 10/21/16 10/22/16 10/23/16 05:59 05:59 05:59 Intake Total 3507 1360 Balance 3507 1360 PT 15.4 SEC (12.0-15.0) H 10/20/16 04:45 INR 1.22 (0.83-1.16) H 10/20/16 04:45 ICD10 Worksheet Patient Problems: Problems Problem Status Onset Fever Acute Leukocytosis Acute Skin ulcer of lower leg Acute Venous insufficiency (chronic) (peripheral) Acute
[2016-10-22] MEDS: cefTRIAXone 2 GM in D5W 50 ML IV SCH (08:14)
[2016-10-22] MEDS: INSULIN LISPRO 100 UNIT/ML SC SCH ×3 (08:18→18:11)
[2016-10-22] MEDS: PANTOPRAZOLE SODIUM 40 MG in NS 100 ML IV SCH (09:18)
[2016-10-22] MEDS: OXYCODONE/APAP 5/325 TAB PO PRN ×2 (10:06→15:44)
--- NOTE | 2016-10-22 13:49 | HOSPPROG ---
Hospitalist Progress Note Assessment/Plan: 80 yo F with h/o DM2 and chronic venous insufficiency and chronic LE ulceration pw LLE cellulitis, strep bacteremia in setting of her chronic wounds as well as worsening iron deficiency anemia # LLLE cellulitis: in setting of chronic venous stasis and chronic LE edema. Appreciate ID and gen surgery input, plan is for treatment with CTX for now pending final culture data, wound care and monitoring. Venous study pending today. Has had issues with non compliance as an op complicating her care. # chronic venous stasis/LE edema: venous US study performed and concern that not all her edema and breakdown explained by superficial venous htn--plan is for echo for further evaluation of cardiac function # strep pyogenes bacteremia: likely 2/2 cellulitis, treating with CTX and sensitivities confirm that is effective option, surveillance cultures from 10/20 with ngtd # acute on chronic anemia: has had mild anemia for the last year but more significant decline in the last month. Underwent EGD and colonoscopy without etiology for bleeding noted. Plan is for capsule endoscopy as an OP. # dm2: ssi, metformin for now # hyponatremia: improved, likely hypovolemic hyponatremia # DNR # IP status, will need > 48 hours stay for eval/mgmt of above Subjective: patient feeling well this am, she notes feeling very anxious that her doctor are not all communicating and that she does not know the plan, worked to reassure her that we are all in agreement to the plan and that we have all communicated Objective: Vital Signs Temp Pulse Resp BP Pulse Ox 37.0 C 88 20 119/87 H 93 10/22/16 11:30 10/22/16 11:30 10/22/16 11:30 10/22/16 11:30 10/22/16 11:30 Laboratory Results 10/21/16 10:10 10/21/16 10:10 10/21/16 10/22/16 10/23/16 05:59 05:59 05:59 Intake Total 3507 1360 Balance 3507 1360 PT 15.4 SEC (12.0-15.0) H 10/20/16 04:45 INR 1.22 (0.83-1.16) H 10/20/16 04:45 elderly F nad anicteric op clear rrr no mrg cta b soft nt nd lle w/circumferential erythema, bandage covered with serous drainage warm dry well perfused other than above oriented appropriate - Time Spent With Patient Time Spent with Patient: greater than 35 minutes Time Spent with Patient: Greater than 35 minutes spent on this patients care, greater than 50% of time spent counseling, educating, and coordinating care regarding the above mentioned plan. ICD10 Worksheet Patient Problems: Problems Problem Status Onset Fever Acute Leukocytosis Acute Skin ulcer of lower leg Acute Venous insufficiency (chronic) (peripheral) Acute
[2016-10-22] MEDS ORDERED: ALTEPLASE 2 MG VIAL IVP PRN (15:20)
--- NOTE | 2016-10-22 15:20 | PCMIDPN ---
Assessment/Plan: # GAS bacteremia, portal LLE venous stasis ulcer, 10/20 blood cx demonstrate clearance --PICC line placement --ceftriaxone 2gm IV daily through 11/01/16 # Chr KYLE: awaiting ECHO report to assess if cardiac component Care coordinated with case management Subjective: no pain no diarrhea denies specific response to antibiotics Objective: Vital Signs Temp Pulse Resp BP Pulse Ox 36.5 C 95 16 119/87 H 96 10/22/16 15:09 10/22/16 15:09 10/22/16 15:09 10/22/16 15:09 10/22/16 15:09 Laboratory Results 10/21/16 10:10 10/21/16 10:10 10/21/16 10/22/16 10/23/16 05:59 05:59 05:59 Intake Total 3507 1360 Balance 3507 1360 - Physical Exam General Appearance: alert, no apparent distress EENT: pale conjunctiva, No scleral icterus Respiratory: lungs clear, No accessory muscle use Cardiac/Chest: regular rate, rhythm, systolic murmur Extremities: pedal edema, other (Dressing in place LLE) Skin: No rash Neuro/Psych: alert, normal mood/affect, oriented x 3 ICD10 Worksheet Patient Problems: Problems Problem Status Onset Fever Acute Leukocytosis Acute Skin ulcer of lower leg Acute Venous insufficiency (chronic) (peripheral) Acute
--- NOTE | 2016-10-22 15:39 | PDIAF ---
- Diagnosis Diagnosis: GAS bacteremia Code Status: Do Not Resuscitate - Medication Management Discharge Medications: Medications to Continue on Transfer metFORMIN HCL [Glucophage 500 mg (*)] 1,000 mg PO BIDMEAL 11/28/12 [Last Taken 10/19/16 09:00] Naproxen Sodium [Aleve 220 MG (*)] 220 mg PO BIDMEAL PRN 10/16/15 [Last Taken ] Aspirin EC [Aspirin EC 81 mg (*)] 81 mg PO DAILY 02/13/16 [Last Taken 10/19/16 09:00] Herbal Drugs 1 dose PO DAILY 02/13/16 [Last Taken 02/07/16] Insulin Glargine [Lantus 100 UNITS/ML (*)] 38 units SC HS 02/13/16 [Last Taken 10/18/16 21:00] traMADol [Ultram 50 mg (*)] 100 mg PO BID PRN 02/13/16 [Last Taken 10/19/16 09: 00] Cholecalciferol Vit D3 [Vitamin D3 (*)] 5,000 units PO DAILY 05/02/16 [Last Taken 10/19/16 09:00] Vitamin C 500 mg (*) 1,000 mg PO DAILY 05/02/16 [Last Taken 10/19/16 09:00] Vitamin B Complex [B Complex] 1 tab PO DAILY 10/19/16 [Last Taken 10/19/16 09:00 ] Group Home Antibiotics: ceftraixone 2gm IV daily 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 PICC Care - Routine: Yes - Orders Services needed: Home Care, Registered Nurse Home Care Face to Face: I certify that this patient was under my care and that I had the required [id number] encounter meeting the encounter requirements on the discharge day. My findings support the fact that the patient is homebound as defined in CMS Chapter 7 Medicare Benefits Manual 30.1.1, The condition of the patient is such that there exists a normal inability to leave home and consequently, leaving home would require a considerable and taxing effort. - Labs/Radiology CBC Date: 10/28/16 (weekly Friday) CMP Date: 10/28/16 (weekly Friday) Call or Fax Lab and Imaging Results to: [id number] Dr Gerard Choi - Follow Up Care Current Providers and Referrals: Patient,NotPresent [Unknown] - As per Instructions Gerard Choi MD [Medical Doctor] - follow up in 1 week
--- NOTE | 2016-10-22 16:35 | ECHO ---
[id number] + + [address] : : [place] [address] : : [phone] + + Adult Echocardiographic Report + ----+ :Name: Laura STONERtrent Date: 10/22/2016 12:48 PM : : Hospital Admission Number: [id number] Location: 376: :: 1935 Gender: Female Height: 63 in : :Age: 80 yrs Race: WH Weight: 350 lb : :Reason For Study: Eval LV Fx : : BSA: 2.5 meters2 : :History: Infection on Left lower extremity. New murmur : + ----+ MMode/2D Measurements \T\ Calculations IVSd: 0.87 cm LVIDd: 4.8 cm FS: 48.4 % Ao root diam: 2.9 cm LVPWd: 0.94 cm LVIDs: 2.5 cm EDV(Teich): 108.0 ml ACS: 2.1 cm ESV(Teich): 21.9 ml EF(Teich): 79.7 % Normal Measurement Values: + + :LVIDd (3.5-5.7cm) IVSd (0.6-1.1cm) LVPWd (0.6-1.1cm) Aortic Root (2.0-3.7cm)Left Atrium (1.5-4.0cm): :LV Vol(d) (76-115ml) LV Vol(s) (29-48ml) Ejec Fraction (50-65%)PV Thaun (0.6- 1.2m/s) TV Thuan (0.4-1.0m/s) : :MV E Thuan (0.8-1.0m/s)MV A Thuan (0.3-1.0m/s)LVOT Thuan (0.7-1.2m/s) Asc Ao Thuan ( 0.9-1.8m/s) : + + Doppler Measurements \T\ Calculations MV E max thuan: Ao V2 max: LV V1 max: PA V2 max: 98.2 cm/sec 172.4 cm/sec 132.3 cm/sec 112.7 cm/sec MV A max thuan: Ao max PG: LV V1 max PG: PA max P.8 cm/sec 11.9 mmHg 7.0 mmHg 5.1 mmHg MV E/A: 1.1 TR max thuan: 308.1 cm/sec TR max P.0 mmHg RAP systole: 5.0 mmHg RVSP(TR): 43.0 mmHg Left Ventricle The left ventricle is normal in size. There is normal left ventricular wall thickness. The left ventricular ejection fraction is normal. There is Doppler evidence for diastolic dysfunction. Ejection Fraction = 79%. The left ventricular wall motion is normal. Right Ventricle The right ventricle is normal in size and function. Atria The left atrial size is normal. Right atrial size is normal. Mitral Valve The mitral valve is normal in structure and function. There is no evidence of mitral valve prolapse. There is no mitral valve stenosis. There is no mitral regurgitation noted. Tricuspid Valve There is mild tricuspid regurgitation. Cannot rule out tricuspid vegetation. Aortic Valve The aortic valve is normal in structure and function. There is no aortic stenosis. There is no aortic insufficiency. Pulmonic Valve The pulmonic valve is normal in structure and function. Great Vessels The aortic root is normal size. Pericardium/Pleural There is no pericardial effusion. Conclusion A complete two-dimensional transthoracic echocardiogram was performed (2D, M-mode, Doppler and color flow Doppler). The left ventricular ejection fraction is normal. Ejection Fraction = 79%. The left ventricular wall motion is normal. There is Doppler evidence for diastolic dysfunction. The right ventricle is normal in size and function. The left atrial size is normal. Grossly normal appearing valvular structures. However, imaging is somewhat limited by body habitus. If the clinical suspicion for infectious endocarditis is high, would consider transesophageal echocardiography. There is mild tricuspid regurgitation. There is no pericardial effusion. Final Reading Physician: ShyamNilson Portillo signed on 10/22/2016 04:33 PM Ordering Physician: Gerard Choi Performed By: Keegan Foley, SERGEICS
[2016-10-23 05:03] LABS: ABSOLUTE IMMATURE GRANULOCYTES 0.05 10^3/uL (0.00-0.10); ADD DIFF? NO; ADD MORPH? YES; ADD SCAN? NO; ATYPICAL LYMPHOCYTE FLAG 10 (0-99); FRAGMENT RBC FLAG 20 (0-99); HEMATOCRIT 24.5 % (38.0-47.0); HEMOGLOBIN 7.2 g/dL (12.6-16.3); LEFT SHIFT FLG 0 (0-99); LIPEMIA HEMOLYSIS FLAG 70 (0-99); MEAN CELL HEMOGLOBIN 22.5 pg (27.9-34.1); MEAN CELL HEMOGLOBIN CONCENTR. 29.4 g/dL (32.4-36.7); MEAN CELL VOLUME 76.6 fL (81.5-99.8); MEAN PLATELET VOLUME 8.5 fL (8.7-11.7); PLATELET CLUMPS FLAG 0 (0-99); PLATELET COUNT 259 10^3/uL (150-400)
[2016-10-23 05:04] LABS: RED CELL DISTRIBUTION WIDTH 20.4 % (11.5-15.2)
[2016-10-23 05:23] LABS: ANION GAP 7 mEq/L (8-16); CARBON DIOXIDE 25 mEq/l (22-31); CHLORIDE 105 mEq/L (97-110); CREATININE 0.9 mg/dL (0.6-1.0); GLOMERULAR FILTRATION RATE > 60; GLUCOSE 162 mg/dL (70-100); POTASSIUM 4.2 mEq/L (3.5-5.2); SODIUM 137 mEq/L (134-144)
[2016-10-23 05:26] LABS: HYPOCHROMIA 1+; MICROCYTES 2+
[2016-10-23 05:27] LABS: POLYCHROMASIA 1+; SCHISTOCYTES 1+
[2016-10-23 05:29] LABS: PLATELET ESTIMATE ADEQUATE (ADEQ)
[2016-10-23] MEDS: INSULIN LISPRO 100 UNIT/ML SC SCH ×2 (08:23→13:11)
[2016-10-23] MEDS: cefTRIAXone 2 GM in D5W 50 ML IV SCH (08:23)
[2016-10-23] MEDS: OXYCODONE/APAP 5/325 TAB PO PRN ×2 (08:24→11:03)
[2016-10-23] MEDS ORDERED: PANTOPRAZOLE SODIUM 40 MG TAB PO SCH (09:00)
--- NOTE | 2016-10-23 09:44 | PDIAF ---
- Diagnosis Diagnosis: GAS bacteremia Code Status: Do Not Resuscitate - Medication Management Discharge Medications: Medications to Continue on Transfer metFORMIN HCL [Glucophage 500 mg (*)] 1,000 mg PO BIDMEAL 11/28/12 [Last Taken 10/19/16 09:00] Naproxen Sodium [Aleve 220 MG (*)] 220 mg PO BIDMEAL PRN 10/16/15 [Last Taken ] Aspirin EC [Aspirin EC 81 mg (*)] 81 mg PO DAILY 02/13/16 [Last Taken 10/19/16 09:00] Herbal Drugs 1 dose PO DAILY 02/13/16 [Last Taken 02/07/16] Insulin Glargine [Lantus 100 UNITS/ML (*)] 38 units SC HS 02/13/16 [Last Taken 10/18/16 21:00] traMADol [Ultram 50 mg (*)] 100 mg PO BID PRN 02/13/16 [Last Taken 10/19/16 09: 00] Cholecalciferol Vit D3 [Vitamin D3 (*)] 5,000 units PO DAILY 05/02/16 [Last Taken 10/19/16 09:00] Vitamin C 500 mg (*) 1,000 mg PO DAILY 05/02/16 [Last Taken 10/19/16 09:00] Vitamin B Complex [B Complex] 1 tab PO DAILY 10/19/16 [Last Taken 10/19/16 09:00 ] Acetaminophen [Tylenol 325mg (*)] 650 mg PO Q4HRS PRN #0 tab 10/23/16 [Last Taken Unknown] Alteplase [Cathflo Activase 2 mg (*)] 2 mg IVP PRN PRN #0 vial 10/23/16 [Last Taken Unknown] Hydrocodone/APAP 5/325 [[place] 5/325 (*)] 1 - 2 tab PO Q4HRS PRN #30 tab [Last Taken Unknown] cefTRIAXone [Rocephin] 2 gm IV DAILY vial 10/23/16 [Last Taken Unknown] oxyCODONE IR [Oxycodone Ir (*)] 5 mg PO Q6H PRN #30 tab 10/23/16 [Last Taken Unknown] Lap Welder Antibiotics: ceftraixone 2gm IV daily Lap Welder Antibiotic Stop Date: 11/01/16 Discharge Medications: Refer to the Discharge Home Medication list for PRN reason. PICC Care - Routine: Yes - Orders Services needed: Home Care, Registered Nurse Home Care Face to Face: I certify that this patient was under my care and that I had the required [id number] encounter meeting the encounter requirements on the discharge day. My findings support the fact that the patient is homebound as defined in CMS Chapter 7 Medicare Benefits Manual 30.1.1, The condition of the patient is such that there exists a normal inability to leave home and consequently, leaving home would require a considerable and taxing effort. Diet Recommendation: sodium restricted, ADA 2000 consistent carb Diet Texture: Regular Texture Diet Weigh Patient: weekly Bearden: Not applicable - Labs/Radiology CBC Date: 10/28/16 (weekly Friday) CMP Date: 10/28/16 (weekly Friday) Call or Fax Lab and Imaging Results to: [id number] Dr Gerard Choi - Follow Up Care Current Providers and Referrals: Patient,NotPresent [Unknown] - As per Instructions Gerard Choi MD [Medical Doctor] - follow up in 1 week
--- NOTE | 2016-10-23 10:38 | PCMIDPN ---
Assessment/Plan: Assessment: Group a strep bacteremia likely secondary to long-standing ongoing open ulceration of the left lower extremity. Repeat blood cultures are no growth to date. Patient is improved on ceftriaxone 2 g IV Q 24 hours. Chronic venous insufficiency-echocardiogram did not reveal significant abnormality Plan: 1. Continue IV ceftriaxone 2 g IV Q 24 hours. Anticipated duration is 14 days from blood culture clearance. 2. Follow clinical course. 10/23/16 17:45 Subjective: Patient is resting comfortably in her hospital bed. She continues to have chronic fluid draining from her left lower extremity. No new fevers or chills. Anxious to go home. Objective: Ceftriaxone #4 Vital Signs Temp Pulse Resp BP Pulse Ox 36.8 C 85 17 144/67 H 98 10/23/16 08:06 10/23/16 08:06 10/23/16 08:06 10/23/16 07:40 10/23/16 08:06 Laboratory Results 10/23/16 04:50 10/23/16 04:50 10/22/16 10/23/16 10/24/16 05:59 05:59 05:59 Intake Total 1360 150 Balance 1360 150 - Physical Exam General Appearance: WD/WN, alert, no apparent distress, non-toxic Respiratory: lungs clear, normal breath sounds, No respiratory distress Cardiac/Chest: regular rate, rhythm, No tachycardia Extremities: non-tender, No normal inspection Skin: normal color, warm/dry, No rash Neuro/Psych: alert, normal mood/affect, oriented x 3 ICD10 Worksheet Patient Problems: Problems Problem Status Onset Fever Acute Leukocytosis Acute Skin ulcer of lower leg Acute Venous insufficiency (chronic) (peripheral) Acute
[2016-10-23 11:15] VITALS: PULSE 88; RESP 20; TEMP 97.7; O2SAT 96
--- NOTE | 2016-10-23 11:27 | HOSPPROG ---
Hospitalist Progress Note Assessment/Plan: 80 yo F with h/o DM2 and chronic venous insufficiency and chronic LE ulceration pw LLE cellulitis, strep bacteremia in setting of her chronic wounds as well as worsening iron deficiency anemia # LLLE cellulitis: in setting of chronic venous stasis and chronic LE edema. Appreciate ID and gen surgery input, plan is for treatment with CTX for now pending final culture data, wound care and monitoring. Venous study pending today. Has had issues with non compliance as an op complicating her care. # chronic venous stasis/LE edema: venous US study performed and concern that not all her edema and breakdown explained by superficial venous htn--plan is for echo for further evaluation of cardiac function # strep pyogenes bacteremia: likely 2/2 cellulitis, treating with CTX and sensitivities confirm that is effective option, surveillance cultures from 10/20 with ngtd # acute on chronic anemia: has had mild anemia for the last year but more significant decline in the last month. Underwent EGD and colonoscopy without etiology for bleeding noted. Plan is for capsule endoscopy as an OP. # dm2: will dc back on metformin # hyponatremia: improved, likely hypovolemic hyponatremia # DNR # IP status, will need > 48 hours stay for eval/mgmt of above Patient is likely ready for dc but unclear if home health will be able to take patient versus to snf--CM working on it. Care plan reviewed with CM/ID. Subjective: no significant overnight events, patient is feeling anxious about discharge but feels that she is ready to go home Objective: Vital Signs Temp Pulse Resp BP Pulse Ox 36.5 C 88 20 142/63 H 96 10/23/16 11:11 10/23/16 11:11 10/23/16 11:11 10/23/16 11:11 10/23/16 11:11 Laboratory Results 10/23/16 04:50 10/23/16 04:50 10/22/16 10/23/16 10/24/16 05:59 05:59 05:59 Intake Total 1360 150 Balance 1360 150 PT 15.4 SEC (12.0-15.0) H 10/20/16 04:45 INR 1.22 (0.83-1.16) H 10/20/16 04:45 elderly F nad anicteric op clear rrr no mrg cta b soft nt nd lle w/circumferential erythema, bandage covered with serous drainage warm dry well perfused other than above oriented appropriate - Time Spent With Patient Time Spent with Patient: greater than 35 minutes Time Spent with Patient: Greater than 35 minutes spent on this patients care, greater than 50% of time spent counseling, educating, and coordinating care regarding the above mentioned plan. ICD10 Worksheet Patient Problems: Problems Problem Status Onset Fever Acute Leukocytosis Acute Skin ulcer of lower leg Acute Venous insufficiency (chronic) (peripheral) Acute
[2016-10-23 11:59] VITALS: BP 140/77
--- NOTE | 2016-10-23 12:34 | PDDCSUM ---
Discharge Summary Discharge Summary: Dates of service 10/19-10/23/16 Discharge dx: # LLE cellulitis # chronic venous stasis/chronic LE edema # strep pyogenes bacteremia # acute on chronic anemia # DM2 # hyponatremia # diastolic dysfunction Consultations: ID, general surgery, GI Procedures performed: EGD, colonoscopy, echo, venous US study, PICC placement Hospital course by problem: # LLLE cellulitis: in setting of chronic venous stasis and chronic LE edema. Will dc home on IV ctx with plan to continue until 11/01. # chronic venous stasis/LE edema: complicating treatment of above, will continue care at wound clinic, compression/elevation # strep pyogenes bacteremia: 2/2 cellulitis, surveillance cultures from 10/20 with ngtd, tx as above # acute on chronic anemia: has had mild anemia for the last year but more significant decline in the last month. Underwent EGD and colonoscopy without etiology for bleeding noted. Plan is for capsule endoscopy as an OP. # dm2: will dc back on metformin # hyponatremia: improved, likely hypovolemic hyponatremia # DNR DC home will f/u with wound care clinic and infusion center as well as ID/general surgery and GI > 35 minutes spent in dc more than half in coordination of care
--- NOTE | 2016-10-23 16:39 | SOAPPROG ---
SOAP Progress Note Assessment/Plan: Assessment: 80yo F well known to our service from wound healing center. admitted with anemia bacteremia. Dressings changed today Highly encouraged DC to SNF. Patient refusing Will f/u at [facility] 3x/week and friend will change dressing other days of the week Seen c Dr. Hay S: very adamant about being discharged home. may consider SNF after classes are done in 2 weeks O: sitting upright in bed no increased wob LLE circumferential wound clean no e/o active infection, dressing changed. Wrap in place RLE Evidence of venous stasis BLE Objective: Vital Signs Temp Pulse Resp BP Pulse Ox 36.5 C 88 20 140/77 H 96 10/23/16 11:11 10/23/16 11:11 10/23/16 11:11 10/23/16 11:56 10/23/16 11:11 Laboratory Results 10/23/16 04:50 10/23/16 04:50 10/22/16 10/23/16 10/24/16 05:59 05:59 05:59 Intake Total 1360 150 Balance 1360 150 PT 15.4 SEC (12.0-15.0) H 10/20/16 04:45 INR 1.22 (0.83-1.16) H 10/20/16 04:45 ICD10 Worksheet Patient Problems: Problems Problem Status Onset Fever Acute Leukocytosis Acute Skin ulcer of lower leg Acute Venous insufficiency (chronic) (peripheral) Acute
--- NOTE | 2016-10-24 11:26 | PDIAF ---
- Diagnosis Diagnosis: GAS bacteremia Code Status: Do Not Resuscitate - Medication Management Discharge Medications: Medications to Continue on Transfer metFORMIN HCL [Glucophage 500 mg (*)] 1,000 mg PO BIDMEAL 11/28/12 [Last Taken 10/19/16 09:00] Naproxen Sodium [Aleve 220 MG (*)] 220 mg PO BIDMEAL PRN 10/16/15 [Last Taken ] Aspirin EC [Aspirin EC 81 mg (*)] 81 mg PO DAILY 02/13/16 [Last Taken 10/19/16 09:00] Herbal Drugs 1 dose PO DAILY 02/13/16 [Last Taken 02/07/16] Insulin Glargine [Lantus 100 UNITS/ML (*)] 38 units SC HS 02/13/16 [Last Taken 10/18/16 21:00] traMADol [Ultram 50 mg (*)] 100 mg PO BID PRN 02/13/16 [Last Taken 10/19/16 09: 00] Cholecalciferol Vit D3 [Vitamin D3 (*)] 5,000 units PO DAILY 05/02/16 [Last Taken 10/19/16 09:00] Vitamin C 500 mg (*) 1,000 mg PO DAILY 05/02/16 [Last Taken 10/19/16 09:00] Vitamin B Complex [B Complex] 1 tab PO DAILY 10/19/16 [Last Taken 10/19/16 09:00 ] Acetaminophen [Tylenol 325mg (*)] 650 mg PO Q4HRS PRN #0 tab 10/23/16 [Last Taken Unknown] Alteplase [Cathflo Activase 2 mg (*)] 2 mg IVP PRN PRN #0 vial 10/23/16 [Last Taken Unknown] Hydrocodone/APAP 5/325 [[place] 5/325 (*)] 1 - 2 tab PO Q4HRS PRN #30 tab [Last Taken Unknown] cefTRIAXone [Rocephin] 2 gm IV DAILY vial 10/23/16 [Last Taken Unknown] oxyCODONE IR [Oxycodone Ir (*)] 5 mg PO Q6H PRN #30 tab 10/23/16 [Last Taken Unknown] Production Supervisor Off Shift Antibiotics: ceftraixone 2gm IV daily Production Supervisor Off Shift Antibiotic Stop Date: 11/01/16 Discharge Medications: Refer to the Discharge Home Medication list for PRN reason. PICC Care - Routine: Yes - Orders Services needed: Registered Nurse, Physical Therapy, Occupational Therapy Diet Recommendation: sodium restricted, ADA 2000 consistent carb Diet Texture: Regular Texture Diet Weigh Patient: weekly Bearden: Not applicable - Labs/Radiology CBC Date: 10/28/16 (weekly Friday) CMP Date: 10/28/16 (weekly Friday) Call or Fax Lab and Imaging Results to: [id number] Dr Gerard Choi - Follow Up Care Current Providers and Referrals: Patient,NotPresent [Unknown] - As per Instructions Khai Rodriguez MD [Medical Doctor] - (to schedule capsule endoscopy) Gerard Choi MD [Medical Doctor] - follow up in 1 week
== END 2016-10-23 14:20 | DRG 603 ==
LOC: EDUNIT# → OBSVTOIN 17:30 → F3E 17:49
PROVIDERS: ADMIT Internal Medicine; ATTEND Internal Medicine
PROC: 0DB98ZX Excision of Duodenum, Via Natural or Artificial Opening Endoscopic, Diagnostic (ICD-10-PCS; principal; 2016-10-20 09:00)
PROC: 0DBH8ZX Excision of Cecum, Via Natural or Artificial Opening Endoscopic, Diagnostic (ICD-10-PCS; 2016-10-21)
PROC: 0DBP8ZX Excision of Rectum, Via Natural or Artificial Opening Endoscopic, Diagnostic (ICD-10-PCS; 2016-10-21)
PROC: 0DBN8ZX Excision of Sigmoid Colon, Via Natural or Artificial Opening Endoscopic, Diagnostic (ICD-10-PCS; 2016-10-21)
PROC: 02HV33Z Insertion of Infusion Device into Superior Vena Cava, Percutaneous Approach (ICD-10-PCS; 2016-10-22)
DX: L03.116 Cellulitis of left lower limb (principal); R78.81 Bacteremia; B95.0 Streptococcus, group A, as the cause of diseases classified elsewhere; E87.1 Hypo-osmolality and hyponatremia; L97.921 Non-pressure chronic ulcer of unspecified part of left lower leg limited to breakdown of skin; E11.9 Type 2 diabetes mellitus without complications; I87.2 Venous insufficiency (chronic) (peripheral); D64.9 Anemia, unspecified; K63.5 Polyp of colon; K62.1 Rectal polyp; Z66 Do not resuscitate
CPT/HCPCS: 97161-GP; 97165-GO; 97530-GO; 97535-GO; C1751; J0696; J1170; J1335; J1815; J2060; J2405; J2543; J2704; J2916; P9016

== ENCOUNTER → 2017-05-20 | Outpatient (CLI) | payer OTHER ==
[~2017-05-20] MED LIST: IOPAMIDOL (ISOVUE-370) 150 ML BTL IV ONE
== END ==
LOC: FIMAGING 10:47
PROVIDERS: ATTEND Internal Medicine
DX: I87.2 Venous insufficiency (chronic) (peripheral) (principal); I77.1 Stricture of artery; J18.9 Pneumonia, unspecified organism; E11.9 Type 2 diabetes mellitus without complications
CPT/HCPCS: 75635; Q9967

== ENCOUNTER → 2017-06-30 | Day surgery (SDC) | payer OTHER ==
[~2017-06-30] MED LIST changes: +ALTEPLASE 2 MG VIAL IVP PRN; +FLUMAZENIL 0.5 MG/5 ML MDV IVP ONE; +FLUMAZENIL 0.5 MG/5 ML MDV IVP PRN; +GLUCAGON HCL 1 MG VIAL IVP PRN; +HEPARIN 10,000 UNIT/10 ML MDV (1,000 UNIT/ML) IVP PRN; +IOPAMIDOL (ISOVUE-300) 100 ML BTL ONE; -IOPAMIDOL (ISOVUE-370) 150 ML BTL IV ONE; +LIDOCAINE 1% 300 MG/30 ML SDV ONE; +MEPERIDINE 25 MG/ML SYR IVP PRN; +MIDAZOLAM 2 MG/2 ML VIAL IVP PRN; +MIDAZOLAM 2 MG/2 ML VIAL ONE; +NALOXONE HCL 0.4 MG/ML INJ IVP PRN; +NALOXONE HCL 0.4 MG/ML INJ ONE; +NS 1,000 ML IV SCH; +ONDANSETRON 4 MG/2 ML VIAL IVP PRN; +OXYCODONE/APAP 5/325 TAB PO PRN; +PROTAMINE SULFATE 50 MG/5 ML VIAL IVP PRN; +fentaNYL 100 MCG/2 ML INJ IVP PRN; +fentaNYL 100 MCG/2 ML INJ ONE
[2017-06-30 09:01] LABS: INR 0.98 (0.83-1.16); PROTIME(PATIENT) 13.2 SEC (12.0-15.0)
--- NOTE | 2017-06-30 09:07 | PDGENHP ---
History & Physical Chief Complaint: extensive LLE ulcer History of Present Illness: Has had multiple venous studies. Recent arterial study shows AVF at LT ankle. Recurrent ulcer, being taken care of by wound care clinic. Embolization needed. Pertinent Past, Social, Family History: bilateral total knee, rt rotator cuff, lilateral cataract, tonsilectomy. Relevant Physical Exam: non-healing ulcer LT ankle. Cardiorespiratory Assessment: RRR, CTA
--- NOTE | 2017-06-30 09:07 | PDPROPOC ---
Sedation Plan of Care Sedation Plan of Care: vital signs stable, mental status noted, patient educated of risks, benefits, alternatives, patient can tolerate sedation ASA Classification: ASA 3 Planned drugs: fentanyl, midazolam Mallampati Score: Class 2 Mallampati Reference Image: Patient passed 3-3-2 rule?: Yes
--- NOTE | 2017-06-30 11:42 | PDRADPN ---
Radiology Procedure Note Date of Procedure: 06/30/17 Radiologist: Teresita Bauer Anesthesia: IV Sedation Pre-op Diagnosis: LLE ULCER Post-op Diagnosis: SAME Indication: POSSIBLE ARTERIAL FEEDER Procedure: LLE ANGIOGRAM WITH EMBOLIZATION Finding(s): 1MM VESSEL FEEDING INTO VARICOSITIES EMBOLIZED. Inf/Abcess present in the surg proc area at time of surgery?: No Complications: NONE
[2017-06-30 11:43] VITALS: BP 129/65
== END | disposition home or self-care (01) ==
LOC: FIMAGING 07:21
PROVIDERS: ATTEND Surgery
PROC: 04L Lower Arteries, Occlusion (ICD-10-PCS; principal; 2017-06-30)
DX: L97.221 Non-pressure chronic ulcer of left calf limited to breakdown of skin (principal); I87.322 Chronic venous hypertension (idiopathic) with inflammation of left lower extremity; I77.0 Arteriovenous fistula, acquired
CPT/HCPCS: 37242; 75710; 97602; 99152; 99153; C1769; C1892; C1894; C1760; J1644; J2250; J2310; J3010; Q9967

== ENCOUNTER 2017-10-23 | Inpatient (IN) | payer OTHER | END 2017-10-27 16:30 | disposition home or self-care (01) | DRG 872 | PROVIDERS: ADMIT Internal Medicine | DX: A41.9 Sepsis, unspecified organism (principal); L03.115 Cellulitis of right lower limb; N39.0 Urinary tract infection, site not specified; B96.4 Proteus (mirabilis) (morganii) as the cause of diseases classified elsewhere; B37.3 Candidiasis of vulva and vagina; T36.95XA Adverse effect of unspecified systemic antibiotic, initial encounter; E11.9 Type 2 diabetes mellitus without complications; I10 Essential (primary) hypertension; I83.008 Varicose veins of unspecified lower extremity with ulcer other part of lower leg; M81.0 Age-related osteoporosis without current pathological fracture; D50.9 Iron deficiency anemia, unspecified; R32 Unspecified urinary incontinence; Z66 Do not resuscitate; Z86.14 Personal history of Methicillin resistant Staphylococcus aureus infection | CPT/HCPCS: 96365; 96366; 97110-GO; 97116-GP; 97162-GP; 97165-GO; 97530-GP; 97535-GO; G0378; G8978-GP-CJ; G8979-GP-CI; G8987-GO-CK; G8988-GO-CH; G8988-GO-CI; G8989-GO-CI; J0690; J1650; J1815 ==

== ENCOUNTER → 2017-11-20 | Outpatient (CLI) | payer OTHER | LOC: FIMAGING 12:08 | PROVIDERS: ATTEND Internal Medicine | DX: Z12.31 Encounter for screening mammogram for malignant neoplasm of breast (principal) ==

== ENCOUNTER 2018-08-20 09:52 | Inpatient (IN) | payer OTHER | END 2018-08-26 16:13 | disposition home health service (06) | LOC: FSGY 09:52 → F3N 11:49 → F3E 14:47 ==